=== PATIENT | male | born 1945 | race Caucasian/White ===

== ENCOUNTER 2019-01-11 05:48 | Day surgery (SDC) | payer MEDICARE, OTHER ==
[~2019-01-11] VITALS: Ht 177.8 cm; Wt 104.0 kg
[~2019-01-11 05:48] MED LIST: AMLO5 PO; ASPI325 PO; ASPI81CH PO; ATOR10; CLOP75 PO; FLUO10 PO; FLUO20; HYDACE5 PO; HYDCHL12.5 PO; INSULANPEN SC; LEVSOD75 PO; LIRA0.6P; LISI10; LOSA50 PO; METF500 PO; METO25ER PO; Novolog100 UNIT/1 SC; OMEPRAZOLE MAGN20 MG PO; OXYACE5T PO; PRAV20 PO; PRILOSEC 40 MG; RXOXYACE PO; RXPROM25 PO; SPIR25 PO; TRULICITY0.75 MG/0. SC
--- NOTE | 2019-01-11 07:56 | NUR ---
PT ARRIVED BACK TO RECOVERY ROOM WITH [address] ISAAK RTR PULLING SHEATH TO HOLD MANUAL PRESSURE TO OBTAIN HEMOSTASIS. CALL LIGHT IN REACH.
--- NOTE | 2019-01-11 08:38 | NUR ---
RIGHT GROIN SITE SOFT NON-TENDER WITH NO HEMATOMA AND INTACT DRESSING; TRACK OOZING NOTED WITH MARGIN DRAWN. PT DENIES CHEST PAIN, OR ANY PAIN. CALL LIGHT IN REACH.
--- NOTE | 2019-01-11 10:42 | NUR ---
HOB UP TO 45 DEGREES.
--- NOTE | 2019-01-11 11:16 | NUR ---
PT RFA SITE APPEARS STABLE, YUNIOR PAD AND TRANSPARENT DRESSING INTACT. SOFT NON TENDER WITH NO PAIN PER PT. PT AMBULATES WITH STEADY GAIT, CALLED FOR RIDE HOME. PT VERBALIZED UNDERSTANDING OF D/C INSTRUCTIONS. PAPERWORK PROVIDED IN [facility]. NADN AT TIME OF DISPO. VSS. PERIPHERAL IV REMOVED WITH CATH INTACT, PRESSURE DRESSING APPLIED. TAKEN OUT TO PRIVATE VEHICLE VIA W/C. ENCOURAGED PT TO FOLLOW UP SCHEDULED.
== END 2019-01-11 11:15 | disposition home or self-care (01) ==
LOC: MHTC 05:48
DX: I25.10 Atherosclerotic heart disease of native coronary artery without angina pectoris (principal); I35.0 Nonrheumatic aortic (valve) stenosis; I77.810 Thoracic aortic ectasia; E11.9 Type 2 diabetes mellitus without complications; I10 Essential (primary) hypertension; E78.5 Hyperlipidemia, unspecified; K21.9 Gastro-esophageal reflux disease without esophagitis; Q24.9 Congenital malformation of heart, unspecified; E78.00 Pure hypercholesterolemia, unspecified; Z95.1 Presence of aortocoronary bypass graft; Z87.891 Personal history of nicotine dependence; Z88.8 Allergy status to other drugs, medicaments and biological substances; Z79.82 Long term (current) use of aspirin; Z79.84 Long term (current) use of oral hypoglycemic drugs; Z79.899 Other long term (current) drug therapy
CPT/HCPCS: 93455; 99152; 99153; C1769; C1894; J1644; J1885; J2250; J3010; J7030; J7040; Q9967

== ENCOUNTER → 2019-06-27 | Outpatient (CLI) | payer MEDICARE, OTHER ==
[2019-06-28 14:42] LABS: Stool Occult Bld Immuno 1 Negative (NEGATIVE); Stool Occult Bld Immuno 2 Negative (NEGATIVE)
== END | disposition home or self-care (01) ==
LOC: LAB 14:00 → LAB SHORT 14:00 → LAB FUT 04-20 17:15
PROVIDERS: Internal Medicine Gastroenterology
DX: D50.9 Iron deficiency anemia, unspecified (principal)
CPT/HCPCS: 82274

== ENCOUNTER 2022-01-20 12:57 | Day surgery (SDC) | payer OTHER ==
[~2022-01-20] VITALS: Ht 177.8 cm; Wt 95.3 kg
[~2022-01-20 12:57] MED LIST changes: +Aspir 8181 MG PO; +BASAGLAR K100 UNIT/1; +FERROUS SULFAT325 M3 PO; +FISH OIL 1,2001 EAC7 PO; +GLUCOPHAGE1000 M1 PO; +HYDROCHLOROTH12.5 MG PO; +MULTIVITAMINS1 EAC3 PO; +Norco 5-325 Ta1 EACH PO; +OMEP20ER PO; +OZEMPIC0.25 MG/0.; +Pravastatin Sod80 MG PO; +Prozac40 MG PO
== END 2022-01-20 15:15 | disposition home or self-care (01) ==
LOC: ORSCSDS 12:57
PROVIDERS: Internal Medicine Gastroenterology
PROC: 0DJ08ZZ Inspection of Upper Intestinal Tract, Via Natural or Artificial Opening Endoscopic (ICD-10-PCS; principal; 2022-01-20 14:15)
DX: R13.10 Dysphagia, unspecified (principal); I10 Essential (primary) hypertension; E11.9 Type 2 diabetes mellitus without complications; K76.0 Fatty (change of) liver, not elsewhere classified; K21.9 Gastro-esophageal reflux disease without esophagitis; I25.10 Atherosclerotic heart disease of native coronary artery without angina pectoris; G47.33 Obstructive sleep apnea (adult) (pediatric); Z85.46 Personal history of malignant neoplasm of prostate; E66.9 Obesity, unspecified; Z68.30 Body mass index [BMI] 30.0-30.9, adult; Z79.82 Long term (current) use of aspirin; Z79.4 Long term (current) use of insulin; Z79.899 Other long term (current) drug therapy
CPT/HCPCS: 82947; J2704

== ENCOUNTER 2022-01-22 09:34 | Day surgery (SDC) | payer OTHER ==
[~2022-01-22] VITALS: Ht 177.8 cm; Wt 93.3 kg
--- NOTE | 2022-01-22 10:48 | NUR ---
Ambulatory in [facility] warming gown applied. History, Chart, Medications and Allergies reviewed before start of procedure.History, Chart, Medications and Allergies reviewed before start of procedure.Lungs clear T/O to Auscultation. Pre-Op teaching done. Pt verbalizes understanding. Patient States Post-Procedure ride home has been arranged.
--- NOTE | 2022-01-22 11:12 | NUR ---
01/22/22 1112 [place] See Anesthesia record DR REID
--- NOTE | 2022-01-22 11:43 | NUR ---
RECIEVED PATIENT AND REPORT VSS AWAKE TALKING TO RN
--- NOTE | 2022-01-22 11:59 | NUR ---
Discharge instructions reviewed with patient. Patient verbalizes understanding. Copy given to patient to take home. Patient States Post-Procedure ride home has been arranged. Discharged via wheelchair to private car for ride home.
== END 2022-01-22 23:01 | disposition home or self-care (01) ==
LOC: ORSCMMR 09:34 → ORD 10:45 → ORSCMMR 10:45
PROVIDERS: Internal Medicine Gastroenterology
PROC: 0DB58ZX Excision of Esophagus, Via Natural or Artificial Opening Endoscopic, Diagnostic (ICD-10-PCS; principal; 2022-01-22 10:45)
PROC: 0D757ZZ Dilation of Esophagus, Via Natural or Artificial Opening (ICD-10-PCS; principal; 2022-01-22 10:45)
DX: R13.10 Dysphagia, unspecified (principal); K74.60 Unspecified cirrhosis of liver; K76.6 Portal hypertension; K31.89 Other diseases of stomach and duodenum; E66.9 Obesity, unspecified; Z68.30 Body mass index [BMI] 30.0-30.9, adult; Z79.82 Long term (current) use of aspirin; Z79.84 Long term (current) use of oral hypoglycemic drugs; Z79.899 Other long term (current) drug therapy
CPT/HCPCS: 82947; 88305; J7120

== ENCOUNTER 2023-03-20 17:32 | Inpatient (IN) | payer OTHER ==
[~2023-03-20] VITALS: Ht 177.8 cm; Wt 94.7 kg
[2023-03-20 18:17] LABS: BASOPHILS ABSOLUTE AUTO 0.04 K/mm3 (0.00-0.23); BASOPHILS PERCENT AUTO 1 % (0-2); EOSINOPHILS PERCENT AUTO 1 % (0-6); Hematocrit 37.1 % (37.0-53.0); Hemoglobin 12.4 g/dL (13.5-17.5); IMMATURE GRAN ABSOLUTE AUTO 0.01 K/mm3 (0.00-0.10); IMMATURE GRAN PERCENT AUTO 0 % (0-1); LYMPHOCYTES ABSOLUTE AUTO 2.62 K/mm3 (0.84-5.20); LYMPHOCYTES PERCENT AUTO 38 % (21-46); MONOCYTES ABSOLUTE AUTO 0.56 K/mm3 (0.16-1.47); MONOCYTES PERCENT AUTO 8 % (4-13); Mean Corpuscular HGB 32.3 pg (26.0-34.0); Mean Corpuscular HGB Conc 33.4 g/dL (31.5-36.5); Mean Corpuscular Volume 97 fL (80-100); Mean Platelet Volume 9.1 fL (9.1-12.4); NEUTROPHILS ABSOLUTE AUTO 3.61 K/mm3 (1.96-9.15); NEUTROPHILS PERCENT AUTO 52 % (41-73); Platelet Count 177 K/mm3 (150-400); RDW Standard Deviation 45.4 fL (35.1-46.3); Red Blood Cell Count 3.84 M/mm3 (4.30-5.90); White Blood Cell Count 6.94 K/mm3 (4.00-11.30)
[2023-03-20 18:35] LABS: Albumin, Blood 3.9 g/dL (3.4-5.0); Bilirubin, Total 0.6 mg/dL (0.1-1.0); Bun/Creatinine Ratio 22.6 (12.0-20.0); Calcium, Blood 9.2 mg/dL (8.5-10.1); Creatinine, Blood 0.8 mg/dL (0.60-1.20); Globulin, Blood 3.9 g/dL (2.2-4.0); Total Protein, Blood 7.8 g/dL (6.4-8.2)
[2023-03-20 20:36] LABS: Anti-Xa UFH, PHA Monitoring <0.10 IU/mL; Prothrombin Time Results 11.5 Sec (9.7-11.5)
[2023-03-20 21:26] VITALS: BP 180/86
[2023-03-20 21:45] VITALS: BP 162/75
[2023-03-20 22:00] VITALS: BP 160/74
--- NOTE | 2023-03-20 22:00 | NUR ---
ARRIVAL TO PCU NOTE RECEIVED REPORT FROM SUPERVISOR WET END HO ARCE, PT SHORTLY ARRIVED TO PCU 15 ~2120 THIS EVENING. TRANSFERRED VIA SBA FROM ER [facility] TO HOSPITAL BED. A/Ox4 AND COOPERATIVE WITH CARE. ANSWERS QUESTIONS APPROPRIATELY AND ABLE TO MAKE HIS NEEDS KNOWN. CARDIAC, DENIES ANY CP OR PRESSURE UPON ARRIVAL WITHE TELE REPORTING SR 70'S W/INTERMITTENT PVC'S. SBP ELEVATED IN THE 180'S, BUT QUICKLY TRENDED DOWN TO 160'S. PRN HYDRALAZINE ORDERED. RESPIRATORY, LS CLEAR T/O, MAINTAINS SPO2 >90% ON RA. DENIES ANY SOB OR DYSPNEA. GI/, ABD SOFT/NONTENDER WITH BS PRESENT IN ALL QUADRANTS. DENIES ANY DIFFICULTY VOIDING OR ANY BURNING SENSTION. ABLE TO USE URINAL IND. W/ BRP. NO WOUNDS REPORTED OR NOTED UPON ASSESSMENT. WILL CONTINUE TO PROCESS MD ORDERS. HERVE VARELA UPON ARRIVAL
[2023-03-21] VITALS (19 sets, daily range): BP systolic 115–155; BP diastolic 55–87
--- NOTE | 2023-03-21 05:45 | NUR ---
SHIFT SUMMARY NO ACUTE CHANGED SINCE ARRIVAL NOTE. SEE NOTE FOR MORE DETAILS. REMAINS A/Ox4 AND COOPERATIVE WITH CARE. TROPONINS CONTINUE TO CLIMB IN THE [address] FLORES AND DR. THOMAS MADE AWARE. A TOTAL OF 3 EKG S PERFORMED THIS AM WITH RESULTS BE SENT TO SAID MD S ABOVE. HEPARIN gtt IS BEING MANAGED VIA PHARMACY AND HAS BEEN RUNNING ALL NIGHT ORDERED VIA EMAR. REPORTS MINIMAL CENTRAL CHEST SORENESS W/O RADIATION OR PRESSURE REPORTED ANYWHERE ELSE. HAS BEEN NPO SINCE MDN FOR SCHEDULED ANGIO THIS AM. PRESSURES REMAIN STABLE WITH SBP RANGING 120-150 S. Q6HR CBG HAS BEEN PERFORMED ORDERED.ASSESSED PT FOR RISKS OF ANY IGNITION SOURCES WELL BEHAVIORS FOR INCREASED RISKS OF FIRE DANGER. PT EDUCATED ON COMMON SOURCES OF IGNITION WELL NEED TO KEEP A SAFE ENVIRONMENT. PT VOICED UNDERSTANDING. NO NEW ORDERS OF THIS NOTE, WILL REPORT TO ONCOMING RN.
--- NOTE | 2023-03-21 16:43 | NUR ---
SHIFT SUMMARY: PT HAS BEEN A&Ox4, ANSWERING QUESTIONS APPROPRIATELY AND COOPERATIVE W/CARE. PT DENIES SOB, O2 SATS MAINTAINED >95% ON RA. THIS AM, PT REPORTED SORE FEELING IN CHEST BUT HAS DENIED SORENESS MAJORITY OF THE DAY. PT TO/FROM POLITICAL CARTOONIST FOR ANGIOGRAM, RETURNS W/ANGIOSEAL TO R GROIN ACCESS SITE. SITE IS SOFT, NONTENDER, NO ACTIVE BLEEDING. PT HAS BEEN LYING FLAT PER ORDERS, REPOSITIONED PRN. VS HAVE BEEN STABLE. PT AND FAMILY V/U OF HOSPITAL POLICY RE: IGNITABLE RESOURCES, PT AND FAMILY DENY POSSESSION OF OR INTENT TO USE IGNITABLE RESOURCES. WILL CONTINUE TO MONITOR AND TREAT ACCORDINGLY UNTIL CHANGE OF SHIFT.
--- NOTE | 2023-03-21 22:54 | NUR ---
2129 - PT COMPLAINING OF CHEST PAIN, 3/[address] CHANGES NOTED ON TELEMETRY. EKG OBTAINED, CALLED DR. CURRIE AND STATES THERE IS NO INTERVENTION TO BE DONE AND ORDER FOR FENTANYL FOR PAIN CONTROL. NO FURTHER ORDERS AT THIS TIME
[2023-03-22 03:52] VITALS: BP 110/68
--- NOTE | 2023-03-22 04:49 | NUR ---
SHIFT SUMMARY A/Ox4 AND COOPERATIVE WITH CARE. ANSWERS QUESTIONS APPROPRIATELY AND ABLE TO MAKE HIS NEEDS KNOWN. ~2130 ON 03/21/23, PT STARTED C / O INTERMITTENT CP WITH A RATING OF 3/10 VIA NUMERIC SCALE. DENIES RADIATION. EKG OBTAINED WELL DR. CURRIE INFORMED BY PACKAGING SALES CONSULTANT TRAVIS HENSON. PER DR. CURRIE, THERE IS NO INTERVENTION TO BE DONE AT THIS TIME. PRN FENTANYL 25-50 mcg Q4HRS ORDERED. PAIN MANAGED PER EMAR. REMAINS IN SR 60-90 S, SBP HAS BEEN STABLE 130-140 S. RIGHT FEMORAL ACCESS SITE FROM ANGIO ON 03/21/23 FREE OF ANY BLEEDING, HEMATOMA, OR REDNESS. SITE IS SOFT,/NONTENDER. RLE WARM TO THE TOUCH WITH NO REPORTS OF ANY TINGLING OR SENSATION LOSS. RESPIRATORY, MAINTAINS SPO2 >93% ON RA WITH NO REPORTS OF SOB OR DYSPNEA. 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 LS CLEAR T/O. GI/, ABLE TO INDEPENDENTLY USE URINAL AT BEDSIDE OR AMBULATE TO BATHROOM WITH SBA. NS INFUSING PER EMAR. PALLIATIVE CARE CONSULT PUT IN DUE TO PT'S COMPLEX CASE. ASSESSED PT FOR RISKS OF ANY IGNITION SOURCES WELL BEHAVIORS FOR INCREASED RISKS OF FIRE DANGER. PT EDUCATED ON COMMON SOURCES OF IGNITION WELL NEED TO KEEP A SAFE ENVIRONMENT. PT VOICED UNDERSTANDING. NEW ORDERS AT THIS TIME, WILL REPORT TO ONCOMING RN. HERVE VARELA OF THIS NOTE
[2023-03-22 08:03] VITALS: BP 121/67
--- NOTE | 2023-03-22 08:03 | NUR ---
ASSUMED CARE OF PT AT 0700 THIS AM. PT AND AT BEDSIDE EDUCATED ON FIRE SAFETY MEASURES AND DENY ANY SOURCES OF IGNITION. PT DENIES CHEST PAIN THIS AM. NEW ORDERS FROM DR JAVIER NOTED. PT IS ABLE TO USE CALL LIGHT AND CALL LIGHT IS IN REACH. WILL CONTINUE TO MONITOR AND INTERVENE NEEDED.
--- NOTE | 2023-03-22 11:43 | NUR ---
Pt resting in bed upon arrival. Pt denies pain, anxiety, dyspnea, and nausea. Pt's son and Pt's friend at bedside. Pt is A&OX4. Brief review of plan of care. Engaged in therapeutic discussion regarding advanced care planning. Educated on disease process including trajectory and the importance of planning for the future. Discussed code status wishes. Educated on life sustaining treatments including risks and implications to CPR/Intubation. Pt does not indicate his wishes at this time. Pt reports no questions or concerns at this time. Spoke with Primary RN Keena and discussed case. Palliative Care will remain available
[2023-03-22 11:45] VITALS: BP 102/48
[2023-03-22 16:25] VITALS: BP 116/51
--- NOTE | 2023-03-22 18:14 | NUR ---
PT OOB AND AMBULATING THIS AFTERNOON, DENIES CHEST PAIN OR PRESSURE. R GROIN ANGIO SITE WNL. SEE DOCUMENTED VS AND ASSESSMENT. NO ACUTE CHANGES T/O THE SHIFT. PLAN IS TO DISCHARGE PT TOMORROW IF HE REMAINS CHEST PAIN FREE. CALL LIGHT IN REACH, WILL CONTINUE TO MONITOR AND GIVE REPORT TO NOC SHIFT RN.
[2023-03-22 19:34] VITALS: BP 134/70
[2023-03-22 20:33] VITALS: BP 134/70
[2023-03-23 00:21] VITALS: BP 115/67
[2023-03-23 03:18] VITALS: BP 117/72
[2023-03-23 03:23] LABS: BASOPHILS ABSOLUTE AUTO 0.02 K/mm3 (0.00-0.23); BASOPHILS PERCENT AUTO 0 % (0-2); EOSINOPHILS ABSOLUTE AUTO 0.01 K/mm3 (0.00-0.68); EOSINOPHILS PERCENT AUTO 0 % (0-6); Hematocrit 30.8 % (37.0-53.0); Hemoglobin 10.8 g/dL (13.5-17.5); IMMATURE GRAN ABSOLUTE AUTO 0.04 K/mm3 (0.00-0.10); IMMATURE GRAN PERCENT AUTO 0 % (0-1); LYMPHOCYTES ABSOLUTE AUTO 1.79 K/mm3 (0.84-5.20); LYMPHOCYTES PERCENT AUTO 17 % (21-46); MONOCYTES ABSOLUTE AUTO 0.91 K/mm3 (0.16-1.47); MONOCYTES PERCENT AUTO 8 % (4-13); Mean Corpuscular HGB 33.3 pg (26.0-34.0); Mean Corpuscular HGB Conc 35.1 g/dL (31.5-36.5); Mean Corpuscular Volume 95 fL (80-100); Mean Platelet Volume 9.1 fL (9.1-12.4); NEUTROPHILS ABSOLUTE AUTO 8.02 K/mm3 (1.96-9.15); NEUTROPHILS PERCENT AUTO 74 % (41-73); Platelet Count 133 K/mm3 (150-400); RDW Coefficient Variation 13.2 % (11.7-14.2); RDW Standard Deviation 45.9 fL (35.1-46.3); Red Blood Cell Count 3.24 M/mm3 (4.30-5.90); White Blood Cell Count 10.79 K/mm3 (4.00-11.30)
[2023-03-23 03:38] LABS: Bun/Creatinine Ratio 19.2 (12.0-20.0); Calcium, Blood 8.4 mg/dL (8.5-10.1); Creatinine, Blood 0.94 mg/dL (0.60-1.20); Potassium, Blood 3.9 mmol/L (3.5-5.5)
--- NOTE | 2023-03-23 05:15 | NUR ---
SHIFT SUMMARY A/Ox4 AND COOPERATIVE WITH CARE. ANSWERS QUESTIONS APPROPRIATELY AND ABLE TO MAKE HIS NEEDS KNOWN. NO ACUTE EVENTS OVERNIGHT FOR PT WAS ABLE TO SLEEP T/O MOST OF THE SHIFT . CARDIAC, REMAINS IN SR-ST 60-100 S WITH NO REPORTS OF CP OR PRESSURE T/O THE NIGHT. SBP HAS BEEN STABLE RANGING IN THE 110-130 S. RIGHT FEMORAL ACCESS SITE FROM ANGIO ON 03/21/23 FREE OF ANY BLEEDING, HEMATOMA, OR REDNESS. SITE IS SOFT/NONTENDER. RLE WARM TO THE TOUCH WITH NO REPORTS OF ANY TINGLING OR SENSATION LOSS. RESPIRATORY, MAINTAINS SPO2 >90% ON RA WITH NO REPORTS OF SOB OR DYSPNEA WHEN AT REST. 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 LS CLEAR T/O. MINIMAL SOB NOTED WITH MODERATE ABLATION. HOWEVER. GI/, ABLE TO INDEPENDENTLY USE URINAL AT BEDSIDE OR AMBULATE TO BATHROOM WITH SBA. PALLIATIVE CARE MET WITH PT ON PREVIOUS SHIFT TO DISCUSS ADVANCE CARE PLANNING GIVEN RECENT CARDIAC DEVELOPMENTS. ASSESSED PT FOR RISKS OF ANY IGNITION SOURCES WELL BEHAVIORS FOR INCREASED RISKS OF FIRE DANGER. PT EDUCATED ON COMMON SOURCES OF IGNITION WELL NEED TO KEEP A SAFE ENVIRONMENT. PT VOICED UNDERSTANDING. NEW ORDERS AT THIS TIME, WILL REPORT TO ONCOMING RN. HERVE VARELA OF THIS NOTE.
[2023-03-23 08:04] VITALS: BP 133/71
--- NOTE | 2023-03-23 10:04 | NUR ---
AM NOTE: PATIENT ALERT AND ORIENTED X4. ABLE TO MAKE NEEDS KNOWN. USING CALL LIGHT. FAMILY MEMBER AT BEDSIDE. DENIES NUMBNESS/TINGLING. UP IND TO BATHROOM. ABLE TO TURN SELF IN BED. ON ROOM AIR SATING ABOVE 90%. EVEN AND UNLABORED BREATHING. LUNGS SOUNDING CLEAR. PATIENT REPORTS BEING SLIGHTLY SOB WHEN UP TO BATHROOM THIS AM. TELE SHOWING SR WITH HR 70-90'S. BP STABLE. PPP. DENIES CHEST PAIN/PRESSURE/PALPITATIONS THIS AM. RIGHT GROIN SITE WNL, REMAINS SOFT AND NONTENDER. DRESSING C/D/I. DENIES ABDOMINAL PAIN/NAUSEA. EATING AND VOIDING WNL. BOWEL TONES PRESENT. ACHS BLOOD SUGAR CHECKS. CALL LIGHT IN REACH. PATIENT DENIES NEEDS AT THIS TIME.
[2023-03-23 11:58] VITALS: BP 129/71
[2023-03-23] MEDS ORDERED: CLOP75 PO (12:19)
[2023-03-23] MEDS ORDERED: RANO500T PO (12:20)
[2023-03-23] MEDS ORDERED: Isosorbide Mono30 MG PO (12:20)
--- NOTE | 2023-03-23 14:07 | NUR ---
DISCHARGE: NO ACUTE CHANGES SEE PREVIOUS NOTES. VITAL SIGNS REMAIN STABLE. PATIENT CONTINUES TO DENY CHEST PAIN. THIS RN PLACED CALL TO [facility] TO SCHEDULE FOLLOW UP. DR. JAVIER OFFICE TO CALL PATIENT. [facility]IENT TO CALL [facility] TO [facility]. NEW MEDICATIONS REVIEWED INCLUDING DOSE CHANGE TO CURRENT HOME MED. POST GROIN SITE PRECAUTIONS REVIEWED. PATIENT AND FAMILY MEMBER ABLE TO REPEAT BACK DISCHARGE INSTRUCTIONS. IV REMOVED WNL. PATIENT LEFT UNIT WITH ALL PERSONAL BELONGINGS VIA WHEELCHAIR. SCRIPT FOR PEPCID 20 MG PO BID WRITTEN BY DR. HOOPER GIVEN TO PATIENT. SEE COPY IN CHART.
[2023-03-24] MEDS ORDERED: FAMO20 PO ×2 (07:47→07:49)
[2023-03-24] MEDS ORDERED: PRAV20 PO (07:49)
== END 2023-03-23 13:56 | disposition home or self-care (01) | DRG 281 ==
LOC: ER 17:32 → PCU 20:04
PROVIDERS: Emergency Medicine; Internal Medicine; Student in an Organized Health Care Education/Training Program; ADMIT Student in an Organized Health Care Education/Training Program
PROC: B2111ZZ Fluoroscopy of Multiple Coronary Arteries using Low Osmolar Contrast (ICD-10-PCS; principal; 2023-03-21)
PROC: B2181ZZ Fluoroscopy of Left Internal Mammary Bypass Graft using Low Osmolar Contrast (ICD-10-PCS; 2023-03-21)
PROC: B2131ZZ Fluoroscopy of Multiple Coronary Artery Bypass Grafts using Low Osmolar Contrast (ICD-10-PCS; 2023-03-21)
DX: I21.4 Non-ST elevation (NSTEMI) myocardial infarction (principal); I25.810 Atherosclerosis of coronary artery bypass graft(s) without angina pectoris; I24.9 Acute ischemic heart disease, unspecified; I10 Essential (primary) hypertension; E78.5 Hyperlipidemia, unspecified; G47.33 Obstructive sleep apnea (adult) (pediatric); I25.10 Atherosclerotic heart disease of native coronary artery without angina pectoris; E66.01 Morbid (severe) obesity due to excess calories; E11.51 Type 2 diabetes mellitus with diabetic peripheral angiopathy without gangrene; K21.9 Gastro-esophageal reflux disease without esophagitis; D50.9 Iron deficiency anemia, unspecified; I34.0 Nonrheumatic mitral (valve) insufficiency; E03.9 Hypothyroidism, unspecified; Z95.1 Presence of aortocoronary bypass graft; Z95.2 Presence of prosthetic heart valve; Z90.49 Acquired absence of other specified parts of digestive tract; Z90.89 Acquired absence of other organs; Z90.79 Acquired absence of other genital organ(s); Z87.891 Personal history of nicotine dependence; Z88.8 Allergy status to other drugs, medicaments and biological substances; Z79.899 Other long term (current) drug therapy; Z79.84 Long term (current) use of oral hypoglycemic drugs; Z79.890 Hormone replacement therapy; Z79.82 Long term (current) use of aspirin; Z91.148 Patient's other noncompliance with medication regimen for other reason; Z79.02 Long term (current) use of antithrombotics/antiplatelets; Z68.35 Body mass index [BMI] 35.0-35.9, adult
CPT/HCPCS: 36415; 71046; 76937; 80048; 80053; 82947; 84484; 85025; 85520; 85610; 85730; 93005; 93010; 93306; 93455; 94760; 94762; 99152; 99153; 99285-25; A9270; C1760; C1769; C1894; J1644; J2250; J3010; J7030; J7050; Q9967

== ENCOUNTER 2023-09-27 10:48 | Inpatient (IN) | payer OTHER ==
[~2023-09-27] VITALS: Ht 177.8 cm; Wt 91.6 kg
[~2023-09-27 10:48] MED LIST changes: +FAMO20 PO; +FURO20 PO; +Isosorbide Mono30 MG PO; +LOSA25 PO; +POTCHL20ER PO; +RANO500T PO
[2023-09-27 11:15] LABS: BASOPHILS ABSOLUTE AUTO 0.02 K/mm3 (0.00-0.23); BASOPHILS PERCENT AUTO 0 % (0-2); EOSINOPHILS PERCENT AUTO 0 % (0-6); Hematocrit 38.1 % (37.0-53.0); Hemoglobin 13.2 g/dL (13.5-17.5); IMMATURE GRAN ABSOLUTE AUTO 0.05 K/mm3 (0.00-0.10); IMMATURE GRAN PERCENT AUTO 0 % (0-1); LYMPHOCYTES ABSOLUTE AUTO 1.83 K/mm3 (0.84-5.20); LYMPHOCYTES PERCENT AUTO 11 % (21-46); MONOCYTES ABSOLUTE AUTO 0.31 K/mm3 (0.16-1.47); MONOCYTES PERCENT AUTO 2 % (4-13); Mean Corpuscular HGB 32.8 pg (26.0-34.0); Mean Corpuscular HGB Conc 34.6 g/dL (31.5-36.5); Mean Corpuscular Volume 95 fL (80-100); Mean Platelet Volume 8.9 fL (9.1-12.4); NEUTROPHILS ABSOLUTE AUTO 13.92 K/mm3 (1.96-9.15); NEUTROPHILS PERCENT AUTO 86 % (41-73); Platelet Count 189 K/mm3 (150-400); RDW Coefficient Variation 12.6 % (11.7-14.2); RDW Standard Deviation 43.6 fL (35.1-46.3); Red Blood Cell Count 4.03 M/mm3 (4.30-5.90); White Blood Cell Count 16.13 K/mm3 (4.00-11.30)
[2023-09-27 11:31] LABS: Albumin, Blood 3.9 g/dL (3.4-5.0); Albumin/Globulin Ratio 0.8 (0.8-1.8); Bilirubin, Total 0.7 mg/dL (0.1-1.0); Bun/Creatinine Ratio 28.8 (12.0-20.0); Calcium, Blood 9.4 mg/dL (8.5-10.1); Creatinine, Blood 0.8 mg/dL (0.60-1.20); Globulin, Blood 4.7 g/dL (2.2-4.0); Potassium, Blood 3.9 mmol/L (3.5-5.5); Total Protein, Blood 8.6 g/dL (6.4-8.2)
[2023-09-27 17:19] LABS: Anti-Xa UFH, PHA Monitoring <0.10 IU/mL; International Normalized Ratio 1.12; Prothrombin Time Results 11.7 Sec (9.7-11.5)
[2023-09-27 20:20] VITALS: BP 126/79
[2023-09-27 23:50] VITALS: BP 101/67
[2023-09-28] VITALS (11 sets, daily range): BP systolic 94–128; BP diastolic 48–79
--- NOTE | 2023-09-28 01:50 | NUR ---
PT ALERT AND ORIENTED X 4, COOPERATIVE WITH CARE AND ABLE TO MAKE NEEDS KNOWN. PERRLA. LUNG SOUNDS CLEAR. WHILE AWAKE PT ON RA AND MAINTAINS 02 SATURATION ABOVE 92%, HE DENIES SOB. PT USES CPAP AT HOME, RESPIRATORY THERAPIST SET UP CPAP FOR PT TO USE WHILE SLEEPING. PT SAID A FAMILY MEMBER WILL BRING HIS HOME CPAP IN TMR. HR SR 60'S-70'S, BP STABLE AT 101/67, HE HAS DENIED CHEST PAIN/PRESSURE SINCE HE ARRIVED TO UNIT. NO EDEMA TO BLE. PT CONTINENT OF BLADDER AND BOWELS. GROSS & FINE MOTOR MOVEMENTS INTACT. PT DENIES PAIN. HE HAD TWO FAMILY MEMBERS ARRIVE TO UNIT WITH HIM, THEY LEFT SHORTLY AFTER THEY GOT HERE. IV TO L FA PATENT AND INFUSING HEPARIN GTT PER EMAR. PT CURRENTLY SLEEPING WITH CPAP ON, SYMMETRICAL RISE AND FALL OF CHEST, RR 16, 02 SATURATION ABOVE 92%. CALL LIGHT WITHIN REACH.
[2023-09-28 01:59] LABS: Anion Gap 5 mmol/L (6-16); Blood Urea Nitrogen 27 mg/dL (8-24); CHOL/HDL RATIO 3.2; CO2, Blood 26 mmol/L (21-32); Calcium, Blood 8.7 mg/dL (8.5-10.1); Chloride, Blood 107 mmol/L (98-108); Cholesterol 144 mg/dL (50-200); Creatinine, Blood 0.87 mg/dL (0.60-1.20); Glomerular Filtration Rate 89 (60-); Glucose, Blood 192 mg/dL (70-99); HDL Cholesterol 45 mg/dL (>39); LDL/HDL RATIO 1.6; Low Density Lipoprotein Chol 73 mg/dL (0-110); Potassium, Blood 4.1 mmol/L (3.5-5.5); Sodium, Blood 138 mmol/L (136-145); Triglycerides 128 mg/dL (30-160); Very Low Density Lipoprot Chol 25 mg/dL (6-32)
[2023-09-28 02:00] LABS: Hematocrit 32.2 % (37.0-53.0); Hemoglobin 11.2 g/dL (13.5-17.5); Mean Corpuscular HGB Conc 34.8 g/dL (31.5-36.5); Mean Corpuscular Volume 95 fL (80-100); Mean Platelet Volume 9.2 fL (9.1-12.4); Platelet Count 176 K/mm3 (150-400); RDW Coefficient Variation 12.8 % (11.7-14.2); RDW Standard Deviation 44.1 fL (35.1-46.3); Red Blood Cell Count 3.39 M/mm3 (4.30-5.90); White Blood Cell Count 14.48 K/mm3 (4.00-11.30)
--- NOTE | 2023-09-28 05:38 | NUR ---
SHIFT SUMMARY NO ACUTE CHANGES, SEE PREVIOUS NOTE. PT CONTINUES TO DENY CHEST PAIN/PRESSURE. HR STILL SR 60'S-70'S, BP STABLE. PT CURRENTLY WEARING CPAP AND IS SLEEPING IN BED. SYMMETRICAL RISE AND FALL OF CHEST, RR 16, 02 SATURATION ABOVE 92%. CALL LIGHT WITHIN REACH OF PT.
--- NOTE | 2023-09-28 18:01 | NUR ---
Shift Summary Pt alert, oriented x4, calm and cooperative with care. Pt resting in bed, up with sba to bathroom. Pt denies pain, chest pain/pressure, sob, nausea, dizziness and numb/tingling. Tele sb/sr 50-80's, bp stable. Pt to photo lab manager this afternoon with Left radial site, no bruising, bleeding or hematoma noted, TR band in place will deflat per policy. Spo2 >90% on ra, breathing even and unlabored. Abd soft, nontender, +bt t/o. Other vss. No other acute changes noted. Will continue to monitor.
[2023-09-29] VITALS: BP 120/77
[2023-09-29 04:00] VITALS: BP 125/80
[2023-09-29 05:00] VITALS: BP 112/59
--- NOTE | 2023-09-29 06:01 | NUR ---
SHIFT SUMMARY PATIENT ALERT AND ORIENTED X4. HAD NO COMPLAINTS OF PAIN OR SHORTNESS OF BREATH. ON ROOM AIR DURING THE DAY, HOME CPAP AT NIGHT WITH SPO2 >90%. VITAL SIGNS STABLE, SINUS RHYTHM ON TELE. TR BAND RECOVERED AT MIDNIGHT, NO OOZING NOTED AT ANGIO SITE, ARM BOARD IN PLACE. WILL CONTINUE TO MONITOR. CALL LIGHT WITHIN REACH.
[2023-09-29 07:37] VITALS: BP 132/92
[2023-09-29 09:18] LABS: Hematocrit 31.3 % (37.0-53.0); Hemoglobin 10.9 g/dL (13.5-17.5); Mean Corpuscular HGB 33.2 pg (26.0-34.0); Mean Corpuscular HGB Conc 34.8 g/dL (31.5-36.5); Mean Corpuscular Volume 95 fL (80-100); Mean Platelet Volume 9.1 fL (9.1-12.4); Platelet Count 179 K/mm3 (150-400); RDW Coefficient Variation 13.2 % (11.7-14.2); RDW Standard Deviation 45.8 fL (35.1-46.3); Red Blood Cell Count 3.28 M/mm3 (4.30-5.90); White Blood Cell Count 11.11 K/mm3 (4.00-11.30)
[2023-09-29 09:49] LABS: Bun/Creatinine Ratio 26.9 (12.0-20.0); Creatinine, Blood 0.93 mg/dL (0.60-1.20); Potassium, Blood 3.6 mmol/L (3.5-5.5)
[2023-09-29 11:19] VITALS: BP 120/80
[2023-09-29] MEDS ORDERED: SPIR50 PO (11:25)
[2023-09-29] MEDS ORDERED: AMLO5 PO (11:27)
[2023-09-29] MEDS ORDERED: Prozac40 MG PO (11:27)
[2023-09-29] MEDS ORDERED: LOSARTAN-HCTZ1 EAC5 PO (11:28)
[2023-09-29] MEDS ORDERED: OMEP20ER PO (11:30)
[2023-09-29] MEDS ORDERED: LEVSOD75 PO (11:30)
[2023-09-29] MEDS ORDERED: FURO20 PO (11:39)
[2023-09-29] MEDS ORDERED: FAMO20 PO (11:39)
[2023-09-29] MEDS ORDERED: ATOR40TA PO (11:49)
[2023-09-29] MEDS ORDERED: OZEMPIC0.25 MG/02 SQ (11:58)
[2023-09-29] MEDS ORDERED: PANT20 PO (11:59)
[2023-09-29] MEDS ORDERED: LOSA25 PO (13:14)
[2023-09-29] MEDS ORDERED: Pravastatin Sod80 MG PO (13:15)
[2023-09-29] MEDS ORDERED: POTCHL20ER PO (13:44)
--- NOTE | 2023-09-29 14:10 | NUR ---
DISCHARGE SUMMARY PT HAD AN UNEVENTFUL MORNING. VS REMAINED STABLE. HE HAD HIS DAUGHTER AND SON AT THE BEDSIDE AT DISCHARGE AND I WENT OVER MEDICATIONS AND DISCHARGE WITH ALL OF THEM. HIS IV WAS DISCONTINUED BY THE RESEARCH STATISTICIAN W/O ANY COMPLICATIONS. [facility] TO [facility]. ALL BELONGINGS WERE SENT WITH THE PT. SEE NOTES FOR ANY UPDATES.
== END 2023-09-29 14:06 | disposition home or self-care (01) | DRG 281 ==
LOC: ER 10:48 → PCU 15:51
PROVIDERS: Physician Assistant; ADMIT Internal Medicine
PROC: B211YZZ Fluoroscopy of Multiple Coronary Arteries using Other Contrast (ICD-10-PCS; principal; 2023-09-28)
PROC: 4A023N7 Measurement of Cardiac Sampling and Pressure, Left Heart, Percutaneous Approach (ICD-10-PCS; 2023-09-28)
DX: I21.4 Non-ST elevation (NSTEMI) myocardial infarction (principal); E87.1 Hypo-osmolality and hyponatremia; I50.32 Chronic diastolic (congestive) heart failure; I25.10 Atherosclerotic heart disease of native coronary artery without angina pectoris; E78.5 Hyperlipidemia, unspecified; I25.5 Ischemic cardiomyopathy; K21.9 Gastro-esophageal reflux disease without esophagitis; E11.51 Type 2 diabetes mellitus with diabetic peripheral angiopathy without gangrene; E89.0 Postprocedural hypothyroidism; F10.90 Alcohol use, unspecified, uncomplicated; I11.0 Hypertensive heart disease with heart failure; E66.01 Morbid (severe) obesity due to excess calories; I34.0 Nonrheumatic mitral (valve) insufficiency; G47.33 Obstructive sleep apnea (adult) (pediatric); Z95.1 Presence of aortocoronary bypass graft; Z90.89 Acquired absence of other organs; Z90.79 Acquired absence of other genital organ(s); Z98.890 Other specified postprocedural states; Z87.891 Personal history of nicotine dependence; Z90.49 Acquired absence of other specified parts of digestive tract; Z98.1 Arthrodesis status; Z79.02 Long term (current) use of antithrombotics/antiplatelets; Z79.84 Long term (current) use of oral hypoglycemic drugs; Z79.899 Other long term (current) drug therapy; Z95.2 Presence of prosthetic heart valve; Z88.8 Allergy status to other drugs, medicaments and biological substances; Z68.28 Body mass index [BMI] 28.0-28.9, adult
CPT/HCPCS: 36415; 71046; 76937; 80048; 80053; 80061; 82947; 83036; 84484; 85025; 85027; 85520; 85610; 85730; 93005; 93010; 93459; 94660; 94762; 96365; 96366; 96376; 99152; 99153; 99285-25; A9270; C1769; C1894; C8929; J1644; J2250; J3010; J7030; J7050; Q9957; Q9967

== ENCOUNTER 2024-08-15 13:46 | Inpatient (IN) | payer OTHER ==
[~2024-08-15] VITALS: Ht 177.8 cm; Wt 93.3 kg
[~2024-08-15 13:46] MED LIST changes: +ATOR40TA PO; +LOSARTAN-HCTZ1 EAC5 PO; +OZEMPIC0.25 MG/02 SQ; +PANT20 PO; +SPIR50 PO
[2024-08-15 14:34] LABS: BASOPHILS ABSOLUTE AUTO 0.04 K/mm3 (0.00-0.23); BASOPHILS PERCENT AUTO 1 % (0-2); EOSINOPHILS ABSOLUTE AUTO 0.12 K/mm3 (0.00-0.68); EOSINOPHILS PERCENT AUTO 1 % (0-6); Hematocrit 36.9 % (37.0-53.0); Hemoglobin 12.2 g/dL (13.5-17.5); IMMATURE GRAN ABSOLUTE AUTO 0.02 K/mm3 (0.00-0.10); IMMATURE GRAN PERCENT AUTO 0 % (0-1); LYMPHOCYTES ABSOLUTE AUTO 2.71 K/mm3 (0.84-5.20); LYMPHOCYTES PERCENT AUTO 32 % (21-46); MONOCYTES ABSOLUTE AUTO 0.56 K/mm3 (0.16-1.47); MONOCYTES PERCENT AUTO 7 % (4-13); Mean Corpuscular HGB Conc 33.1 g/dL (31.5-36.5); Mean Corpuscular Volume 97 fL (80-100); Mean Platelet Volume 9.1 fL (9.1-12.4); NEUTROPHILS ABSOLUTE AUTO 5.07 K/mm3 (1.96-9.15); NEUTROPHILS PERCENT AUTO 60 % (41-73); Platelet Count 252 K/mm3 (150-400); RDW Coefficient Variation 13.6 % (11.7-14.2); RDW Standard Deviation 48.4 fL (35.1-46.3); Red Blood Cell Count 3.81 M/mm3 (4.30-5.90); White Blood Cell Count 8.52 K/mm3 (4.00-11.30)
[2024-08-15 14:48] LABS: Albumin, Blood 3.7 g/dL (3.4-5.0); Albumin/Globulin Ratio 0.8 (0.8-1.8); Bilirubin, Total 0.9 mg/dL (0.1-1.0); Bun/Creatinine Ratio 19.2 (12.0-20.0); Calcium, Blood 9.8 mg/dL (8.5-10.1); Creatinine, Blood 1.04 mg/dL (0.60-1.20); Globulin, Blood 4.4 g/dL (2.2-4.0); Potassium, Blood 4.2 mmol/L (3.5-5.5); Total Protein, Blood 8.1 g/dL (6.4-8.2)
[2024-08-15] MEDS ORDERED: Aspirin 325 MG Tab PO ONE (17:50)
[2024-08-15] MEDS ORDERED: Ondansetron HCl 2 MG / ML 2ML Vial IV PRN (20:25)
[2024-08-15] MEDS ORDERED: Ranolazine 500 MG ER Tablet PO SCH (21:00)
[2024-08-15] MEDS ORDERED: Furosemide 10 MG/ML 4ML Vial IV SCH (21:00)
[2024-08-15 21:35] VITALS: BP 167/99
[2024-08-15] MEDS ORDERED: FLU VACC TS2024-25(6MOS UP)/PF 45 MCG/0.5 ML SYRINGE IM ONE (22:00)
[2024-08-15] MEDS ORDERED: METO25ER PO (22:04)
[2024-08-16 02:54] LABS: Influenza A, PCR NEGATIVE (NEGATIVE); Influenza B, PCR NEGATIVE (NEGATIVE); Resp Syncytial Virus, PCR NEGATIVE (NEGATIVE); SARS-Cov-2 (COVID-19) PCR, MMC NEGATIVE (NEGATIVE)
[2024-08-16 04:43] VITALS: BP 118/74
--- NOTE | 2024-08-16 04:46 | NUR ---
SHIFT SUMMARY; PATIENT SLEPT IN LONG INTERVALS AFTER ADMISSION. RESP VIRAL SCORE ALL NEG. SO ISOLATION DC'D. TELE SR [address] ELEVATIO/DEPRESSION PATTERN STILL PRESENT, PER TRANSMISSION BUILDER. NO PRN MEDS GIVEN.
[2024-08-16 05:20] LABS: Bun/Creatinine Ratio 20.5 (12.0-20.0); Calcium, Blood 9.5 mg/dL (8.5-10.1); Creatinine, Blood 1.17 mg/dL (0.60-1.20); Magnesium, Blood 1.8 mg/dL (1.6-2.4); Potassium, Blood 3.6 mmol/L (3.5-5.5)
[2024-08-16] MEDS ORDERED: Levothyroxine Sodium 0.075 MG Tab PO SCH (06:00)
[2024-08-16 07:14] VITALS: BP 126/79
[2024-08-16] MEDS ORDERED: Insulin Human Lispro 100 Units/ML 3ML Syringe SC SCH (07:30)
--- NOTE | 2024-08-16 08:15 | NUR ---
TELEMETRY CALED AND INFORMED OF PT BADRYCARDIA IN THE 40S AND ST CHANGES. DR GASCA CALLED NO ORDERS AT THIS TIME.
[2024-08-16] MEDS ORDERED: Enoxaparin 40 MG/0.4 ML SYR SC SCH (09:00)
[2024-08-16] MEDS ORDERED: Losartan Potassium 25 MG Tab PO SCH (09:00)
[2024-08-16] MEDS ORDERED: Aspirin 81 MG Chew PO SCH (09:00)
[2024-08-16] MEDS ORDERED: Isosorbide Mononitrate 60 MG TABCR PO SCH (09:00)
[2024-08-16] MEDS ORDERED: Atorvastatin 40 MG Tab PO SCH (09:00)
[2024-08-16] MEDS ORDERED: Clopidogrel Bisulfate 75 MG Tab PO SCH (09:00)
[2024-08-16 15:30] VITALS: BP 123/66
--- NOTE | 2024-08-16 18:28 | NUR ---
SHIFT SUMMARY PT A&OX4 AND ANSWERS QUESTIONS APPROPRIATELY. VSS, NO COMPLAINTS OF CP/PRESSURE DURING SHIFT. SOB VERBALIZED, O2 SATS OVER 90%. PT RECEIVED AN ECHOCARDIOGRAM TODAY. PT RECEIVED SCHEDULED AND PRN MEDICATIONS. NO ACUTE EVENTS DURING SHIFT. PT REPOSITIONED INDEPENDENTLY. PT LEFT IN A POSITION OF SAFETY WITH FALL PRECAUTIONS IN PLACE AND CALL LIGHT IN REACH.
[2024-08-16 21:33] VITALS: BP 135/77
[2024-08-17 04:36] VITALS: BP 104/54
--- NOTE | 2024-08-17 04:40 | NUR ---
SHIFT SUMMARY; PATIENT SLEPT IN LONG INTERVAL, NO SOB NOTED, BUT HE WAS NOT UP LONGER THAN TO VOID. NO PRN MEDS GIVEN. TELE SR @ 75 WITH A BBB.
[2024-08-17 05:45] LABS: Bun/Creatinine Ratio 26.3 (12.0-20.0); Calcium, Blood 9.3 mg/dL (8.5-10.1); Creatinine, Blood 1.14 mg/dL (0.60-1.20); Potassium, Blood 3.7 mmol/L (3.5-5.5)
[2024-08-17 07:33] VITALS: BP 104/51
--- NOTE | 2024-08-17 11:53 | NUR ---
ROUNDING WITH DR. MAJOR AT PT'S BEDSIDE. PT REPORTS FEELING BETTER, BUT HE HAS CONTINUED SOB WITH EXERTION. ECHO FROM 08/16 SHOWS EJECTION FRACTION OF 45-50%. PLAN IS TO CONTINUE TITRATING MEDICATIONS TO ALLEVIATE DYSPNEA ON EXERTION. FOLLOW UP WITH CARDIOLOGY FOR MEDICATION MANAGEMENT OUT PATIENT.
[2024-08-17 15:57] VITALS: BP 107/74
[2024-08-17] MEDS ORDERED: Empagliflozin 10 MG TAB PO SCH (16:00)
--- NOTE | 2024-08-17 17:17 | NUR ---
VIJAYA REMAINS ON ROOM AIR. HE HAS TELE, SINUS 70'S AND 80'S WITH BIGEMINY PVC'S AND A BUNDLE BRANCH BLOCK. DR. MAJOR ROUNDED ON PT TODAY, ANTICIPATING A STAY OF 1-2 MIDNIGHTS WITH MEDICATION ADJUSTMENTS FOLLOWING GUIDELINE DIRECTED MEDICAL THERAPY. HE IS a&O X4. HE IS INDEPENDENT IN THE ROOM, SHOWERED TODAY. HE IS WEARING A ZIO PATCH PRESENT ON ARRIVAL. DENIES SOB OR DYSPNEA ON EXERTION. VIJAYA WEARS A CPAP AT NIGHT. HIS HEART RATE WILL DIP INTO THE 40'S TO 50'S AT NIGHT PER TELE REPORT. ROOM AIR DURING THE DAY. LUNG SOUNDS ARE CLEAR. PMH: CABG, GA, TAVR, NECK FUSION.
[2024-08-17 19:42] VITALS: BP 118/74
--- NOTE | 2024-08-17 23:25 | NUR ---
REASON FOR 12 LEAD EKG TELEMTRY NOTIFIED US OF POSSIBLE NEW ST ELEVATION. PT DENIES ANY NEW SYMPTOMS, NO CHEST PAIN, NO PRESSURE, NO SOB. IN FACT PT STATES HE FEELS MUCH BETTER AND IS NO LONGER GETTING SOB WITH ACTIVITY. NOTIFIED MD DANYA ORDERS 12 LEAD EKG. NO SIGNIFICANT CHANGES WITH TODAYS EKG VS 12 LEAD EKG FROM 2 DAYS AGO.
[2024-08-18 05:29] VITALS: BP 127/74
[2024-08-18] MEDS ORDERED: LOSA25 PO (14:08)
[2024-08-18] MEDS ORDERED: JARDIANCE10 MG PO (14:08)
--- NOTE | 2024-08-18 14:51 | NUR ---
DISCHARGE NOTE: PT DISCHARGED AT APPORX 1416. DAUGHTER AT BEDSIDE TO TRANSPORT HOME. PT EDUCATED ON NEED TO TAKE PRESCRIBED MED AND FOLLOW UP WITH PCP AND CARDIOLOGY. PT STATED UNDERSTANDING AND DECLINED ANY NEEDS OR QUESTIONS. PT ESCORTED TO PERSONAL VEHICLE BY BI TESTER.
== END 2024-08-18 14:29 | disposition home or self-care (01) | DRG 280 ==
LOC: ER 13:46 → MEDS 20:22
PROVIDERS: Emergency Medicine; Internal Medicine; Nurse Practitioner Acute Care; ADMIT Internal Medicine
DX: I11.0 Hypertensive heart disease with heart failure (principal); I50.41 Acute combined systolic (congestive) and diastolic (congestive) heart failure; I21.A1 Myocardial infarction type 2; E11.9 Type 2 diabetes mellitus without complications; E03.9 Hypothyroidism, unspecified; E78.5 Hyperlipidemia, unspecified; G47.33 Obstructive sleep apnea (adult) (pediatric); I25.10 Atherosclerotic heart disease of native coronary artery without angina pectoris; R00.1 Bradycardia, unspecified; I25.2 Old myocardial infarction; Z98.890 Other specified postprocedural states; Z79.82 Long term (current) use of aspirin; Z79.84 Long term (current) use of oral hypoglycemic drugs; Z79.02 Long term (current) use of antithrombotics/antiplatelets; Z79.890 Hormone replacement therapy; Z79.899 Other long term (current) drug therapy; Z90.49 Acquired absence of other specified parts of digestive tract; Z95.1 Presence of aortocoronary bypass graft; Z90.89 Acquired absence of other organs; Z87.891 Personal history of nicotine dependence; Z90.79 Acquired absence of other genital organ(s)
CPT/HCPCS: 0241U; 36415; 71046; 71260; 80048; 80053; 82947; 83735; 83880; 84443; 84484; 85025; 93005; 93010; 94660; 94762; 96372; 96374; 96376; 99285-25; A9270; C8929; G0378; J1650; J1940; Q9957; Q9967

== ENCOUNTER 2024-12-28 16:46 | Observation (INO) | payer OTHER ==
[~2024-12-28] VITALS: Ht 182.9 cm; Wt 90.5 kg
[~2024-12-28 16:46] MED LIST changes: +Aspirin 81 MG Chew PO ONE; +EPINEPhrine HCl 0.1 MG/ML 10ML SYR IV ONE; +Heparin Sodium,Porcine 5,000 UNIT/0.5 ML SDV SC ONE; +JARDIANCE10 MG PO; +Ketamine HCl 100 MG / ML 5ML Vial IV ONE; +Ticagrelor 90 MG TABLET PO ONE
[2024-12-28] MEDS ORDERED: Aspirin 325 MG Tab PO ONE (17:05)
[2024-12-28] MEDS ORDERED: Heparin Sodium 5000 Units/ML 1ML MDV IV ONE (17:10)
[2024-12-28] MEDS ORDERED: Ticagrelor 90 MG TABLET PO ONE (17:10)
[2024-12-28 17:15] LABS: Hematocrit 40.3 % (37.0-53.0); Hemoglobin 12.3 g/dL (13.5-17.5); Mean Corpuscular HGB 30.3 pg (26.0-34.0); Mean Corpuscular HGB Conc 30.5 g/dL (31.5-36.5); Mean Corpuscular Volume 99 fL (80-100); NRBC ABSOLUTE 0.02 K/mm3 (0.00-0.02); NRBC Auto 0.2 /100 WBC (0.0-0.2); Platelet Count 174 K/mm3 (150-400); RDW Coefficient Variation 15.4 % (11.7-14.2); Red Blood Cell Count 4.06 M/mm3 (4.30-5.90); White Blood Cell Count 12.13 K/mm3 (4.00-11.30)
[2024-12-28 17:27] LABS: Alanine Aminotransfer (ALT/SGP 28 U/L (12-78); Albumin, Blood 3.7 g/dL (3.4-5.0); Alk Phos 107 U/L (50-136); Anion Gap 15 mmol/L (3-11); Aspartate Aminotrans (AST/SGOT 38 U/L (12-37); Bilirubin, Total 0.7 mg/dL (0.1-1.0); Blood Urea Nitrogen 29 mg/dL (8-24); Bun/Creatinine Ratio 22.1 (12.0-20.0); CHOL/HDL RATIO 2.8; CO2, Blood 19 mmol/L (21-32); Calcium, Blood 9.3 mg/dL (8.5-10.1); Chloride, Blood 105 mmol/L (98-108); Cholesterol 97 mg/dL (50-200); Creatinine, Blood 1.31 mg/dL (0.60-1.20); Globulin, Blood 3.8 g/dL (2.2-4.0); Glomerular Filtration Rate 56 (60-); Glucose, Blood 215 mg/dL (70-99); HDL Cholesterol 35 mg/dL (>39); LDL/HDL RATIO 0.8; Low Density Lipoprotein Chol 29 mg/dL (0-110); Magnesium, Blood 2.3 mg/dL (1.6-2.4); Potassium, Blood 3.3 mmol/L (3.5-5.5); Sodium, Blood 136 mmol/L (136-145); Total Protein, Blood 7.5 g/dL (6.4-8.2); Triglycerides 164 mg/dL (30-160); Very Low Density Lipoprot Chol 32 mg/dL (6-32)
[2024-12-28] MEDS ORDERED: Verapamil HCL 2.5 MG/ML 2ML Injection ONE (17:29)
[2024-12-28] MEDS ORDERED: FentaNYL Citrate 50 MCG/ML 2 ML Injection ONE (17:29)
[2024-12-28] MEDS ORDERED: NS 1,000 ML IV ONE (17:29)
[2024-12-28] MEDS ORDERED: Heparin Sodium 1000 Units/ML 10ML MDV ONE (17:29)
[2024-12-28] MEDS ORDERED: NS 0 ML IV ONE (17:29)
[2024-12-28] MEDS ORDERED: Midazolam HCl 1MG / ML 2ML Vial ONE (17:29)
[2024-12-28] MEDS ORDERED: Nitroglycerin 2 MG/20 ML BTL ONE (17:30)
[2024-12-28] MEDS ORDERED: EPINEPhrine HCl 0.1 MG/ML 10ML SYR IV SCH (17:30)
[2024-12-28 17:31] LABS: Base Excess Venous -16.6 mmol/L; Bicarbonate Venous 12.1 mmol/L (24.0-30.0); PCO2 Venous 47.1 mmHg (38-42)
[2024-12-28 17:33] LABS: pH Blood Venous 7.07 (7.34-7.37)
[2024-12-28 17:46] LABS: Calcium, Ionized (POC) 1.19 mmol/L (1.10-1.46); Chloride (POC) 108 mmol/L (98-108); Creatinine (POC) 1.5 mg/dL (0.8-1.3); Glucose (ISTAT POC) 210 mg/dL (70-99); Hemoglobin (POC) 13.9 g/dL (13.5-17.5); Potassium (POC) 3.3 mmol/L (3.5-5.5); Sodium (POC) 138 mmol/L (135-148); Total CO2 (POC) 20 mmol/L (21-32)
[2024-12-28 17:49] LABS: BAND PERCENT MAN 1 % (0-8); BASOPHILS PERCENT MAN 0 % (0-2); EOSINOPHILS PERCENT MAN 0 % (0-6); LYMPHOCYTES ABSOLUTE MAN 6.55 K/mm3 (0.84-5.20); LYMPHOCYTES PERCENT MAN 54 % (21-46); MONOCYTES ABSOLUTE MAN 1.09 K/mm3 (0.16-1.47); MONOCYTES PERCENT MAN 9 % (4-13); NEUTROPHILS ABSOLUTE MAN 4.48 K/mm3 (1.96-9.15); SEG NEUTROPHILS PERCENT MAN 36 % (41-73); TOTAL CELLS COUNTED 100
[2024-12-28] MEDS ORDERED: FentaNYL Citrate 50 MCG/ML 2 ML Injection IV PRN ×2 (18:20→19:45)
[2024-12-28] MEDS ORDERED: LORazepam 2 MG/ML 1ML Injection IV PRN ×3 (18:20→19:45)
[2024-12-28] MEDS ORDERED: Ondansetron HCl 2 MG / ML 2ML Vial IV PRN (18:55)
--- NOTE | 2024-12-28 21:33 | NUR ---
ED ADMIT TO ICU 9: PT ARRIVES TO THE UNIT AT 2021, TRANSFERRED OVER TO NEW BED VIA SLIDE SHEET. PT ADMITED A POST-CODE, INTUBATED AND TRANSITIONING TO COMFORT CARE. PT IS MINIMALLY RESPONSIVE, PUPILS ARE 1 AND VERY SLUGGISH TO LIGHT, AND NO PURPOSEFULL MOVEMENTS OBSERVED. PT REMAINS INTUBATED WITH SETTINGS AC/VC 18/500/5/100%, TOLERATING VENT, AND SP02 98<. ARRIVES TO UNIT WITH SB ON MONITOR WITH HR 40'S, SBP ON ARRIVAL IN THE 60'S. PT HAS HERRERA IN PLACE THAT IS PATENT AND DRAINING TO GRAVITY. PT IS HAVING FREQUENT BOWEL MOVEMENTS; CLEANED UP AT ARRIVAL AND NEW ATTENDS AND DRYFLOW PLACED. PT'S SIGNIFICANT OTHER AND CLOSE FRIENDS AT BEDSIDE AT THIS TIME. PT APPEARS COMFORTABLY AT THIS TIME.
[2024-12-29] VITALS (12 sets, daily range): BP systolic 83–98; BP diastolic 48–61
[2024-12-29] MEDS ORDERED: Atropine Sulfate 1% Opth Soln 2ML BTL SL PRN ×2 (00:40→15:00)
[2024-12-29] MEDS ORDERED: Morphine Sulfate 10 MG/ML 1MLSYR IV PRN ×3 (00:40→14:55)
--- NOTE | 2024-12-29 00:45 | NUR ---
PT UPDATE: PT MEDICATED WITH ATIVAN AND FENTANYL. PT EXTUBATED BY RT @ 0040.
--- NOTE | 2024-12-29 06:02 | NUR ---
SHIFT SUMMARY: PT ADMITTED FROM THE ED STATUS POST CODE; INTUBATED AND AWAITING FAMILY TO APPROVE EXTUBATION TO COMFORT MEASURES. FAMILY CONFIRMED WANTS AND RT PROCEDED WITH THE EXTUBATION TO COMFORT CARE @ 0040. SINCE THEN PT HAS DISPLAYED SIGNS OF AIR HUNGER AND SISSY LUNDY BREATHING PATTERNS. HR HAS BEEN UNSTABLE ANYWHERE FROM 40'S-80'S. O2 SATS HAVE ALSO BEEN UNSTABLE ANYWHERE FROM 80'S-90'S. NO PURPOSEFUL MOVEMENT OF EXTREMTIES, OPENS EYES OCASIONALLY. NO RESPONSE TO PAINFUL STIMULI PT HAS BEEN GIVEN ATROPINE FOR SECRETIONS AND FENTANYL PUSHES FOR AIR HUNGER AND PAIN RELIEF. FAMILY REMAINS AT BEDSIDE.
--- NOTE | 2024-12-29 09:51 | NUR ---
AM NOTE... ASSUMED CARE OF PT AT 0700, PT WAS ON COMFORT CARE UNTIL 0930 THIS AM WHEN HE WOKE UP AND FOLLOWED COMMANDS, PT IS ABLE TO MOVE ALL EXTREMTIES AND RECOGNIZES FAMILY. PT IS IN SINUS BASSAM IN THE 50'S. BP IS SOFT WITH MAPS 63-69, PROVIDER WAS NOTIFIED AN ORDER FOR NS BOLUS WAS GIVEN. PT IS ON 3L NC WITH O2 SATS> 95% SISSY-LUNDY RESPRIATIONS STILL NOTED.
[2024-12-29] MEDS ORDERED: NS 1,000 ML IV SCH (10:00)
[2024-12-29] MEDS ORDERED: NS 500 ML IV ONE (10:00)
[2024-12-29 10:18] LABS: BASOPHILS ABSOLUTE AUTO 0.02 K/mm3 (0.00-0.23); BASOPHILS PERCENT AUTO 0 % (0-2); EOSINOPHILS PERCENT AUTO 0 % (0-6); Hematocrit 33.9 % (37.0-53.0); Hemoglobin 10.9 g/dL (13.5-17.5); IMMATURE GRAN ABSOLUTE AUTO 0.06 K/mm3 (0.00-0.10); IMMATURE GRAN PERCENT AUTO 0 % (0-1); LYMPHOCYTES ABSOLUTE AUTO 1.73 K/mm3 (0.84-5.20); LYMPHOCYTES PERCENT AUTO 11 % (21-46); MONOCYTES ABSOLUTE AUTO 1.02 K/mm3 (0.16-1.47); MONOCYTES PERCENT AUTO 7 % (4-13); Mean Corpuscular HGB 30.4 pg (26.0-34.0); Mean Corpuscular HGB Conc 32.2 g/dL (31.5-36.5); Mean Corpuscular Volume 95 fL (80-100); Mean Platelet Volume 8.8 fL (9.1-12.4); NEUTROPHILS PERCENT AUTO 82 % (41-73); NRBC ABSOLUTE 0.02 K/mm3 (0.00-0.02); NRBC Auto 0.1 /100 WBC (0.0-0.2); Platelet Count 221 K/mm3 (150-400); RDW Coefficient Variation 15.7 % (11.7-14.2); RDW Standard Deviation 54.3 fL (35.1-46.3); Red Blood Cell Count 3.58 M/mm3 (4.30-5.90); White Blood Cell Count 15.33 K/mm3 (4.00-11.30)
[2024-12-29 10:33] LABS: Anti-Xa UFH, PHA Monitoring <0.10 IU/mL; International Normalized Ratio 1.29; Prothrombin Time Results 13.5 Sec (9.7-11.5)
[2024-12-29] MEDS ORDERED: Enoxaparin 40 MG/0.4 ML SYR SC SCH (11:00)
[2024-12-29] MEDS ORDERED: Aspirin 81 MG Chew PO SCH (11:00)
[2024-12-29] MEDS ORDERED: PANT20 PO (11:06)
[2024-12-29] MEDS ORDERED: TORSE20 PO (11:07)
[2024-12-29] MEDS ORDERED: Bisoprolol Fumar5 MG PO (11:08)
[2024-12-29] MEDS ORDERED: VITAMIN D350 MC3 PO (11:08)
[2024-12-29] MEDS ORDERED: EZET10 PO (11:09)
[2024-12-29] MEDS ORDERED: VITAMIN B121000 MCG PO (11:09)
[2024-12-29 11:22] LABS: Bun/Creatinine Ratio 16.2 (12.0-20.0); Calcium, Blood 8.5 mg/dL (8.5-10.1); Creatinine, Blood 2.97 mg/dL (0.60-1.20)
[2024-12-29 11:43] LABS: Potassium, Blood 5.7 mmol/L (3.5-5.5)
[2024-12-29] MEDS ORDERED: Insulin Human Lispro 100 Units/ML 3ML Syringe SC SCH (12:00)
[2024-12-29] MEDS ORDERED: Sod Ferric Gluc Complx/Sucrose 125 MG in NS 100 ML IV SCH (12:00)
--- NOTE | 2024-12-29 12:01 | NUR ---
UPDATE... AT APPROX 1100 PATIENT SATS DROPPED <88%, BACK ONTO BIPAP 12/6 50% FiO2. AT 1145 PATIENT SATS WERE AT 87% AND THE FiO2 WAS INCREASED TO 60% WITH SATS >90%.
[2024-12-29] MEDS ORDERED: Ampicillin Sod/Sulbactam Sod 3 GM in NS 100 ML IV SCH (12:44)
[2024-12-29] MEDS ORDERED: Mag Sulfate 1 GM/D5% 100ML 100 ML IV STA (13:38)
[2024-12-29] MEDS ORDERED: Levothyroxine Sodium 0.075 MG Tab PO SCH (14:26)
[2024-12-29] MEDS ORDERED: Scopolamine Hydrobromide Patch TOP PRN (15:00)
[2024-12-29] MEDS ORDERED: LORazepam 2 MG/ML 1ML Injection IV PRN (15:00)
--- NOTE | 2024-12-29 15:33 | NUR ---
PT AGAIN ON COMFORT CARE, REQUESTED BY FAMILY AND S/O. THE PATIENT APPEARED TO BE IMPROVING AFTER EXTUBATION FOR A SHORT WHILE, BUT HAS RETURNED TO POOR NEUROLOGIC RESPONSE, AND REPEAT ECHO SHOWS SIGNIFICANT CARDIAC DAMAGE. VISIT WITH FAMILY WAS SHORT, BUT MEANINGFUL. PT'S DAUGHTER MATT HOLDING HIS HAND, TEARFUL BUT STATES SHE IS DOING "OK, ALL THINGS CONSIDERED." PT'S S/O IS ALSO TEARFUL AND LEFT THE ROOM. DAUGHTER REPORTS THE S/O TORO IS A FROM PREVIOUS MARRIAGE, SO THIS IS "EXTRA HARD" ON HER. FAMULY DECLINE A VISIT FROM PAN HELPER TODAY, STATE THEY MET WITH ONE YESTERDAY. BEDSIDE RN STEPPED IN TO MEDICATE PT FOR COMFORT, FAMILY DECLINE FURTHER NEEDS FROM THIS PALLIATIVE CARE RN AT THIS TIME. WILL REMAIN AVAILABLE.
[2024-12-30] MEDS ORDERED: Guaifenesin/Dextromethorphan Syrup 5 ML UDC PO PRN (03:25)
[2024-12-30] MEDS ORDERED: Diazepam 5 MG / ML 2ML SYR IV PRN ×2 (05:55→09:10)
--- NOTE | 2024-12-30 06:36 | NUR ---
SHIFT SUMMARY: PT FAMILY CONTINUES TO BE AT BEDSIDE. HE IS STILL UNABLE TO CLEAR SECRETIONS AND IS COUGHING THROUGHOUT THE NIGHT. HE HAS BEEN GIVEN ATROPINE AND MORPHINE Q 1-2 HRS THROUGHOUT THE NIGHT TO HELP WITH SECRETION PRODUCTION AND COMFORT. FAMILY REQUESTED NT SUCTION WHICH HAS BEEN PERFORMED BY RT Q 2-3 HOURS SINCE 0100. SCOPALAMINE PATCH PLACED BEHIND L EAR AT 0415 TO HELP WITH SECRETIONS. HR UNSTABLE BRADYING DOWN INTO THE 50'S AND THEN BACK UP INTO THE 80'S. SPO2 STABLE IN THE 80'S-90'S. HERRERA IN PLACE DRAINING DARK YELLOW URINE TO GRAVITY. NO BM THIS SHIFT. WILL REPORT TO ONCOMING SHIFT.
--- NOTE | 2024-12-30 07:00 | NUR ---
ASSUME CARE: I have assumed care of this patient. At this time he is resting quietly in bed with SO and daughter at bedside.
[2024-12-30] MEDS ORDERED: Enoxaparin 30 MG/0.3 ML SYR SC SCH (09:00)
[2024-12-30] MEDS ORDERED: Clopidogrel Bisulfate 75 MG Tab PO SCH (09:00)
[2024-12-30] MEDS ORDERED: Atorvastatin 40 MG Tab PO SCH (09:00)
[2024-12-30] MEDS ORDERED: Morphine Sulfate 20 MG/1ML 1 ML Oral Syringe SL PRN (09:10)
--- NOTE | 2024-12-30 10:50 | NUR ---
TRANSFER: Pt transferred to [place] [id number] via bed by RN. Family assisted with pt belongings. Medications taken with pt. Report given to medical floor nurse.
--- NOTE | 2024-12-30 17:40 | NUR ---
SHIFT SUMMARY PT TRANSFERED FROM ICU 9 TO ROOM 364 THIS SHIFT. PT NOTED TO CONT COMFORT CARE. PT NOTED TO RESPOND TO VERBAL STEMULI BUT CLOSES HIS EYES QUICKLY. PT NOTED TO PREFER TO LAY ON HIS RIGHT SIDE AND NOTED TO ROLL HIMSELF OVER ON RIGHT SIDE WHEN REPOSITIONED. FAMILY NOTED TO BE PRESENT AT BEDSIDE THROUGHOUT THIS SHIFT.
--- NOTE | 2024-12-31 05:54 | NUR ---
TIME OF PT'S S.O., TORO, NOTIFIED NURSING STAFF THAT PT HAD STOPPED BREATHING. 2 CASEWORK MANAGER OF COMPLETED AT 0500 WITH THIS RN AND ZAHRA CHAMBERS RN. TORO ABLE TO GET AHOLD OF PT'S DAUGHTER, MATT, AT 0550, AND MATT IS ON HER WAY IN TO THE HOSPITAL. TORO REMAINS AT BEDSIDE. ALL IV'S AND HERRERA CATHETER REMOVED FROM PT.
== END 2024-12-31 05:00 ==
LOC: ER 16:46 → MEDS 16:47 → ERHOLD 16:47 → ICUE 16:47 → MEDS 12-30 10:48
PROVIDERS: Emergency Medicine; Internal Medicine; ADMIT Internal Medicine
DX: I21.3 ST elevation (STEMI) myocardial infarction of unspecified site (principal); I11.0 Hypertensive heart disease with heart failure; I50.21 Acute systolic (congestive) heart failure; J69.0 Pneumonitis due to inhalation of food and vomit; I25.10 Atherosclerotic heart disease of native coronary artery without angina pectoris; R57.0 Cardiogenic shock; E78.5 Hyperlipidemia, unspecified; E03.9 Hypothyroidism, unspecified; D50.9 Iron deficiency anemia, unspecified; I47.20 Ventricular tachycardia, unspecified; G47.33 Obstructive sleep apnea (adult) (pediatric); K21.9 Gastro-esophageal reflux disease without esophagitis; E11.51 Type 2 diabetes mellitus with diabetic peripheral angiopathy without gangrene; Z66 Do not resuscitate; Z95.4 Presence of other heart-valve replacement; Z95.1 Presence of aortocoronary bypass graft; Z88.8 Allergy status to other drugs, medicaments and biological substances; Z79.82 Long term (current) use of aspirin; Z79.84 Long term (current) use of oral hypoglycemic drugs; Z79.890 Hormone replacement therapy; Z79.899 Other long term (current) drug therapy
CPT/HCPCS: 31500; 31720; 36415; 51702; 71045; 80047; 80048; 80053; 80061; 82803; 82947; 83036; 83735; 83880; 84145; 84484; 85014; 85025; 85520; 85610; 85730; 86850; 86900; 86901; 92610; 92950; 93005; 93010; 94002; 94003; 94660; 96365; 96372; 96374-59; 96375; 96375-59; 96376; 99285-25; A9270; C8929; G0378; J0282; J0295; J1644; J1650; J2060; J2250; J2270; J2916; J3010; J3360; J3475; J7030; J7040; J7050; J7060; Q9957